=== PATIENT | male | born 2000 | race Caucasian/White ===

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

== ENCOUNTER 2022-04-28 12:58 | Emergency (ER) | payer OTHER, SELFPAY ==
[2022-04-28 13:13] VITALS: BP 144/90; PULSE 120; RESP 20; TEMP 37.1; O2SAT 100
--- NOTE | 2022-04-28 13:16 | ED.UPPEXIN ---
HPI - Extremity Injury (Upper) General Chief Complaint: Extremity Injury, Upper Stated Complaint: Left Shoulder Pain History of Present Illness HPI narrative: patient presents with left shoulder, upper back pain. no injury. no swelling no bruising no deformity no open areas noted full rom Related Data Allergies Allergy/AdvReac Type Severity Reaction Status Date / Time clavulanic acid Allergy Severe Anaphylaxis Verified 04/28/22 13:15 [From Augmentin] Review of Systems Review of Systems: CONSTITUTIONAL: Denies fever, chills, or sweats. EYES: Denies visual changes, redness, or discharge. ENT: Denies rhinorrhea, congestion, sore throat, or otalgia. CARDIOVASCULAR: Denies chest pain, palpitations, or edema. RESPIRATORY: Denies cough or dyspnea. GASTROINTESTINAL: Denies abdominal pain, nausea, vomiting, or diarrhea. GENITOURINARY: Denies dysuria or hematuria. SKIN: Denies rash or itching. MUSCULOSKELETAL: Denies back pain, joint pain, or myalgia. NEUROLOGIC: Denies headache, numbness, or weakness. PSYCHIATRIC: Denies anxiety or depression. [facility] Past Medical History Medical History (Updated 04/28/22 @ 13:22 by IZA Sol) Overweight (BMI 25.0-29.9) Surgical History Surgical History (Updated 02/19/21 @ 12:07 by Latanya Jones [facility]) No significant past surgical history Family History Family History (Reviewed 02/19/21 @ 12:07 by Latanya Jones [facility]) Grandparent Family history of hypercholesterolemia Depression Mother Depression Family history of migraine headaches Family history of allergic disorder Family history of anemia Other Family history of mental disorder Social History Social History (Reviewed 02/19/21 @ 12:07 by Latanya Jones [facility]) Alcohol intake: current Alcohol use details: Occasional Substance use: current Substance use type: marijuana Gender identity (if verbalized by the patient): Male Comments At time of signature, agree with nursing past medical, surgical, social and family history. There is no relevant family history pertinent to the presenting complaint Exam Narrative: GENERAL: Well-appearing, well-nourished, and in no acute distress. HEAD: Normocephalic, atraumatic. EYES: PERRLA and EOMI. ENT: Nares clear, no rhinorrhea or epistaxis. Mucous membranes moist. NECK: Supple. CHEST: Clear to auscultation. No respiratory distress. HEART: Regular rate and rhythm. No murmur heard. Normal peripheral pulses. ABDOMEN: Soft, nontender, nondistended, normal active bowel sounds. EXTREMITIES: Normal range of motion. No edema. Shoulder exam normal shoulder examNO SWELLING, BRUISING, SKIN CHANGES. SKIN INTACT. NORMAL RADIAL PULSE. NO DEFORMITY OF SHOULDER. NO CLAVICLE TENDERNESS. NORMAL UE SENSATION AND STRENGTH. ROM EVALUATED - CAN RAISE UE ABOVE SHOULDER, CAN ABDUCT, ADDUCT, EXTERNALLY ROTATE AND CAN INTERNALLY ROTATE AND RAISE THUMB UP THE SPINE. NO AC JOINT TENDERNESS, CAN CROSS ARM HORIZONTALLY AND PLACE HAND ON OPPOSITE SHOULDER, NO WINGING OF THE SCAPULA. SUPRASPINATUS APPEARS NORMAL WITH ARMS STRAIGHT OUT AT 30 DEGREES, THUMB DOWN , CAN ABDUCT AGAINST RESISTANCE. SKIN: Warm, dry, no rash. NEURO: No focal deficits. Alert and oriented x3. [place] Coma Scale Eye Opening: Spontaneous 4 [place] Com[place] Scale Motor: Obeys Commands 6 [place] Scale Verbal: Oriented 5 [place] Coma Scale Total 15 Course Course Level of Care: Express Care Visit Vital Signs Vital signs: Vital Signs Temperature 37.1 C 04/28/22 13:13 Pulse Rate 120 H 04/28/22 13:13 Respiratory Rate 04/28/22 13:13 Blood Pressure 144/90 H 04/28/22 13:13 Pulse Oximetry 100 04/28/22 13:13 Oxygen Delivery Room Air 04/28/22 13:13 Temperature 37.1 C 04/28/22 13:13 Pulse Rate 120 H 04/28/22 13:13 Respiratory Rate 04/28/22 13:13 Blood Pressure 144/90 H 04/28/22 13:13 Pulse Oximetry 100 04/28/22 13:13 Oxygen Delivery Room Air 04/28/22 13:13 Please
== END 2022-04-28 13:25 | disposition home or self-care (01) ==
PROVIDERS: Emergency Provider Nurse Practitioner Family; PCP Family Medicine
DX: S46.912A Strain of unspecified muscle, fascia and tendon at shoulder and upper arm level, left arm, initial encounter (principal); X58.XXXA Exposure to other specified factors, initial encounter; F12.90 Cannabis use, unspecified, uncomplicated
CPT/HCPCS: 99213; G0463